=== PATIENT | male | born 1955 | race Caucasian/White ===

== ENCOUNTER 2017-11-24 15:45 | Inpatient (IN) ==
[2017-11-24] MEDS ORDERED: Sodium Chloride 0.9% 1,000 ML PRIMARY IV ONE ×2 (16:21→16:58)
[2017-11-24] MEDS ORDERED: ONDANSETRON 4 MG/2 ML VIAL IVP ONE (16:21)
[2017-11-24] MEDS ORDERED: KETOROLAC 15 MG/1 ML VIAL IVP ONE (16:21)
[2017-11-24 16:28] LABS: VENOUS PH 7.4 (7.32-7.42)
[2017-11-24 16:29] LABS: Hematocrit [HCT] 47.9 % (42.0-52.0); Hemoglobin [HGB] 15.6 g/dL (14.0-18.0); MEAN CORPUSCULAR HEMOGLOBIN 29.2 PG (27-31); MEAN CORPUSCULAR HGB CONC 32.6 g/dL (33-37); MEAN CORPUSCULAR VOLUME 89.7 FL (80-90); MEAN PLATELET VOLUME 13.1 FL (7.4-12.2); RED BLOOD COUNT 5.34 10^6/uL (4.70-6.10)
--- NOTE | 2017-11-24 16:32 | PDOC ---
Abdomen/Flank HPI - General Chief Complaint: Abdomen Pain Stated Complaint: nausea, vomiting, abd pain Date Seen by Provider: 11/24/17 Time Seen by Provider: 16:20 Source: POSITIVE: Patient, Spouse Exam Limitations: POSITIVE: No limitations Nurse's Notes Reviewed & Considered: Yes - History of Present Illness Initial Comments: This is a well-developed, well-nourished, 62-year-old male complaining of constipation and vomiting. Patient comes in today with a history of not feeling well for the last 3 days. 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 He states his colostomy bag filled up rapidly about 3 days ago and since he's had very minimal output. He states in the past when this is happened it was because of dehydration. Patient denies any headache or sore throat, no chest pain or shortness of breath, no cough. He does have nausea vomiting and constipation. He denies any hematuria or dysuria, no myalgias or arthralgias. Patient has a history of colon cancer with APR and colostomy, prostate cancer with seed radiation treatment, and recent diagnosis of leukemia. He is uncertain of the type. Body Location Affected: REPORTS: Abdomen Timing: REPORTS: Abrupt Duration: <1 week Severity: Moderate Quality: REPORTS: "Pain" Abdominal Pain Onset Location: REPORTS: Generalized abdomen Abdominal Pain Radiation: REPORTS: No radiation Context: REPORTS: Activity Modifying Factors: improves with: Nothing Associated Symptoms: REPORTS: Nausea, Vomiting, Constipation Similar Symptoms Previously: Yes Recent Care Received: REPORTS: Denies Any Prior Injuries Related to Current Complaint?: No - Patient Home Medications Home Medications: Home Medications Adhesive Remover [Uni-Solve Adhes Remover Wipes] 1 ea TOPICAL 3XW #1 box Ostomy Supply [Coloplast Skin Barrier] 1 ea MC 3XW #1 box 12/30/11 Ostomy Supply [Ostomy Paste] 57 gm MC PRN #1 tube 12/30/11 Ostomy Supply [Stomahesive Sterile Wafer] 1 ea TOPICAL 3XW #15 wafer 12/30/11 Ostomy Supply [Stomahesive] 1 ea MC 3XW #30 ea 12/30/11 atorvastatin 20 mg tablet 20 mg PO QDAY #90 tab 10/27/17 lisinopril 10 mg tablet 10 mg PO QDAY #90 tab 10/27/17 metformin 1,000 mg tablet 1,000 mg PO BID #90 tab 10/27/17 tamsulosin 0.4 mg capsule 0.4 mg PO BID #180 cap 11/03/17 - Patient Allergies Allergies/Adverse Reactions: Allergies 3 Allergy/AdvReac Type Severity Reaction Status Date / Time promethazine HCl AdvReac Intermediate nausea, Verified 11/24/17 15:55 [From Phenergan] vomiting, MUSCLE SPASMS DIFF BREATHING Past Medical History - heen HEENT History: Denies History Cardiovascular History: Hypertension Respiratory History: Denies History Gastrointestinal History: Colostomy Genitourinary History: Denies History Endocrine History: Denies History Musculoskeletal History: Back Pain, Back Injury Neurological History: Denies History Blood Disorders: Denies History Psychiatric History: Denies History History of Sexually Transmitted Diseases: No Cancer History: Colon, Other (please comment) History of MDRO: No History of Other Communicable Diseases: No Alcohol Use: Occasionally In the Past 12 Months, Have Used or Abuse Any Substance: None Previous Surgical History: Yes Anesthesia Reactions: No Malignant Hyperthermia: No ROS - Limitations ROS Limitations: No Limitations Constitution: REPORTS: Denies Symptoms Cardiovascular: REPORTS: Denies Cardiac Symptoms Respiratory: REPORTS: Denies Resp Symptoms Neurological: REPORTS: Denies Neuro Symptoms Gastrointestinal: REPORTS: Abdominal Pain, Nausea, Vomitting, Constipation Endocrine: REPORTS: Denies Symptoms Musculoskeletal: REPORTS: Denies MS Symptoms Genitourinary: REPORTS: Denies Symptoms Eyes: REPORTS: Denies Symptoms ENT: REPORTS: Denies Symptoms Skin: REPORTS: Denies Skin Symptoms Lympathic: REPORTS: Denies Lympathic Symptoms Immunologic: POSITIVE: Denies Symptoms Psychiatric: POSITIVE: Denies Psych Symptoms Abdominal/Flank Pain PE - General Appearance General Appearance: POSITIVE: Alert, Cooperative, No Acute Distress, No Evidence of Trauma - HEENT HEENT: POSITIVE: Head Inspection Nml, Eyes Inspection Nml, Ears Inspection Nml, Nose Inspection Nml, Oral/Dental Inspect. Nml, Pharynx Inspect. Nml, PERRL, EOMI - Neck Neck: POSITIVE: Normal Inspection, No Apparent Injury - Respiratory Respiratory: POSITIVE: No Respiratory Distress, Breath Sounds Normal, Chest Non- Tender - Cardiovascular Cardiovascular: POSITIVE: Regular Rate and Rhythm, Heart Sounds Normal, Strong Pulses Peripheral Pulses: Radial (L): 4+ - Chest Chest: POSITIVE: Non Tender - Abdomen Abdomen: Soft: (All Quadrants), Normal Bowel Sounds: (All Quadrants), Denies Tenderness: (All Quadrants), No Splenomegaly: (All Quadrants), No Hepatomegaly: (All Quadrants), No Guarding: (All Quadrants), No Rebound: (All Quadrants), No Palpable Pulse: (All Quadrants), No Palpabale Mass: (All Quadrants), No Distention: (All Quadrants), No Rigidity: (All Quadrants) Additional Abdominal Details: Colostomy in the left lower quadrant present. 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 Findings: CBC shows white count of 26.29. Hemoglobin and hematocrit and platelets are normal. INR is 1.17 and PTT is elevated at 12.1. CMP shows a sodium of 146, glucose of 129, total bilirubin of 2.8. Lipase is normal at 138. Urinalysis is positive for bacteria. CT of his abdomen reveals a small bowel obstruction. Ultrasound of his abdomen shows no acute findings. Assessment: #1 leukemia. #2 small bowel obstruction. #3 urinary tract infection. Plan: Patient receives Invanz IV, a nasogastric tube is placed, and patient is being admitted by the hospitalist Dr. Jules Neumanns. Dr. Grant, the on- call surgeon, has come to the emergency room and evaluated the patient. - Consult Consult (If Yes, Name of Consulting MD & Time Called): Yes (Dr Artis, Dr. Grant) Consulting MD will see pt:: POSITIVE: [facility] Admit Counseled: POSITIVE: Patient, Family, RE: Lab Results, RE: Radiology Results, RE : DX Patient Care Time - Estimated PCT Patient Care Time (In Minutes): 45 Vital Signs - VS Reviewed Vital Signs Reviewed: Yes Discharge Clinical Impression: Abdominal pain, Small bowel obstruction, UTI (urinary tract infection) Discharge Disposition: Admit to Inpatient Condition: Stable Date Decision to Admit to Inpatient: 11/24/17 Time Decision to Admit to Inpatient: 20:03
[2017-11-24 16:39] LABS: BLOOD UREA NITROGEN 17 mg/dL (7-22); BUN/CREATININE RATIO 15.45 (6-20); SERUM ALBUMIN 4.7 g/dL (3.5-4.8)
[2017-11-24 17:00] LABS: PLATELET MORPHOLOGY COMMENT NORMAL MORPHOLOGY (NORM); RBC MORPHOLOGY COMMENT NORMAL MORPHOLOGY (NORM); WBC MORPHOLOGY COMMENT NORMAL MORPHOLOGY (NORM)
[2017-11-24 17:01] LABS: BAND NEUTROPHILS % 2 % (0-10); BASOPHILS % (MANUAL) 0 % (0-1); EOSINOPHILS % (MANUAL) 0 % (0-8); METAMYELOCYTES % 0 %; MONOCYTES % (MANUAL) 4 % (0-12); MYELOCYTES % 0 %; NEUTROPHILS % (MANUAL) 45 % (50-80); PROMYELOCYTES % 0 %
[2017-11-24 17:03] LABS: BILIRUBIN,URINE NEGATIVE (NEG); CLARITY,URINE CLEAR (CLEAR); COLOR,URINE YELLOW (Y); GLUCOSE, URINE (UA) NEGATIVE (NEG); OCCULT BLOOD,URINE Trace-intact (NEG); PH,URINE 5.5 (5.0-8.5); PROTEIN,URINE >300 mg/dl (NEG); UROBILINOGEN,URINE 0.2 EU/dL (0.2)
[2017-11-24 17:13] LABS: BACTERIA,URINE MODERATE; SQUAMOUS EPITHELIAL CELL,UR RARE; URINE SAMPLE TYPE CLEAN CATCH URINE; URINE SPECIFIC GRAVITY - MAN 1.027
--- NOTE | 2017-11-24 19:11 | DI ---
EXAM: US Abdomen Limited, Right Upper Quadrant CLINICAL HISTORY: Elevated bilirubin, nausea vomiting TECHNIQUE: Real-time ultrasound of the right upper quadrant with image documentation. COMPARISON: No relevant prior studies available. FINDINGS: Liver: Liver is upper limits of normal in size. Smooth hepatic contour. Diffusely increased hepatic echogenicity is suggestive of diffuse hepatic steatosis. The portal vein is patent with normal direction of flow. Gallbladder: Gallbladder is absent. Common bile duct: Unremarkable as visualized. No stones. No dilation. Pancreas: Unremarkable as visualized. Right kidney: Unremarkable. No stones. No solid mass. No hydronephrosis. IMPRESSION: No acute findings. Probable diffuse hepatic steatosis.
--- NOTE | 2017-11-24 19:29 | DI ---
EXAM: CT Abdomen and Pelvis With Intravenous Contrast CLINICAL HISTORY: Abdominal pain TECHNIQUE: Axial computed tomography images of the abdomen and pelvis with intravenous contrast. COMPARISON: 06/01/2007 FINDINGS: Lung bases: Unremarkable. No mass. No consolidation. Mediastinum: Small hiatal hernia. ABDOMEN: Liver: Unremarkable. Gallbladder and bile ducts: Gallbladder is absent. Pancreas: Unremarkable. Spleen: Unremarkable. Adrenals: Unremarkable. Kidneys and ureters: Moderate left hydroureteronephrosis. Narrowing of the distal left ureter. Subcentimeter foci of hypoattenuation in the left kidney are too small to characterize. Subcentimeter bilateral nephrolithiasis. No calcified ureteral calculi. Stomach and bowel: Dilated fluid-filled loops of small bowel in the lower abdomen are suggestive of a small bowel obstruction. Presacral transition point were several small bowel loops appear tethered. Partial colectomy and left lower quadrant colostomy. PELVIS: Appendix: See above. Bladder: Mild thickening of the underdistended urinary bladder. Reproductive: Brachial therapy seeds are present in the prostate gland. ABDOMEN and PELVIS: Intraperitoneal space: Unremarkable. No free air. Bones/joints: No acute osseous abnormality. Soft tissues: Peristomal hernia containing fat. Multiple small ventral abdominal wall hernias containing fat. Vasculature: Atherosclerosis of the abdominal aorta. No abdominal aortic aneurysm. Lymph nodes: Unremarkable. IMPRESSION: Small bowel obstruction. Presacral transition point. Moderate left hydroureteronephrosis without a calcified ureteral calculus may be related to stricture of the distal ureter. Mass is not excluded.
--- NOTE | 2017-11-24 19:56 | PDOC ---
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 Dale discussed the case with Dr. manuela Hampton general surgery which she had the hospital admit the patient. Past Medical History Medical History: Hypertension, hyperlipidemia, diabetes Surgical History: Colon cancer, prostate cancer, now new diagnosis of leukemia unknown type Tobacco Use: Former Smoker In the Past 12 Months, Have Used or Abuse Any of the Following Substance: None Alcohol Use: None Medication / Allergies Home Medications: Home Medications 3 Medication Instructions Recorded Confirmed Type Adhesive Remover [Uni-Solve Adhes 1 ea TOPICAL 3XW #1 box 12/30/11 11/24/17 History Remover Wipes] Ostomy Supply [Coloplast Skin 1 ea MC 3XW #1 box 12/30/11 11/24/17 History Barrier] Ostomy Supply [Ostomy Paste] 57 gm MC PRN #1 tube 12/30/11 11/24/17 History Ostomy Supply [Stomahesive Sterile 1 ea TOPICAL 3XW #15 wafer 12/30/11 11/24/17 History Wafer] Ostomy Supply [Stomahesive] 1 ea MC 3XW #30 ea 12/30/11 11/24/17 History atorvastatin 20 mg tablet 20 mg PO QDAY #90 tab 10/27/17 11/24/17 Rx lisinopril 10 mg tablet 10 mg PO QDAY #90 tab 10/27/17 11/24/17 Rx metformin 1,000 mg tablet 1,000 mg PO BID #90 tab 10/27/17 11/24/17 Rx tamsulosin 0.4 mg capsule 0.4 mg PO BID #180 cap 11/03/17 11/24/17 Rx Allergies/Adverse Reactions: Allergies 3 Allergy/AdvReac Type Severity Reaction Status Date / Time promethazine HCl AdvReac Intermediate nausea, Verified 11/24/17 15:55 [From Phenergan] vomiting, MUSCLE SPASMS DIFF BREATHING Review of Systems - Review of Systems All Systems: Reviewed & No Additional Complaints Except as Stated - Respiratory Respiratory: DENIES: Negative System Review, Cough, Sputum, Dyspnea At Rest, Dyspnea with Exertion, Pleuritic Pain, Hemoptysis, Wheezing, Other, See HPI - Cardiovascular Cardiovascular: DENIES: Negative System Review, Chest Pain, Edema, Syncope, Palpitations, Orthopnea, Paroxysmal Nocturnal Dyspnea, Other, See HPI - Gastrointestinal Gastrointestinal / Abdominal: REPORTS: Nausea, Vomiting Exam - Vitals Vital Signs: Vital Signs Temperature 96.9 F Temperature Source Temporal Artery Scan Pulse Rate [Pulse Oximeter] 96 Respiratory Rate 22 Blood Pressure [Left Arm] 172/108 Pulse Ox 96 Oxygen Delivery Method Room Air Height 5 ft 5 in Weight 200 lb - General General Appearance: No Acute Distress, Cooperative - ENT ENT Exam: POSITIVE: Normal Exam, Normal External Ear Exam, Normal Oropharynx, TM 's Normal Bilaterally, Mucous Membranes Moist - Neck Neck Exam: Normal Inspection, Full ROM, No Tenderness, No Lymphadenopathy, No Thyromegaly, JVP is not Raised - Respiratory Respiratory Exam: POSITIVE: Clear to Auscultation - Bilaterally, Breathing Non Labored, Normal To Percussion, Normal to Percussion and Palpation - Cardiovascular Cardiovascular Exam: POSITIVE: RRR, No Murmur, No Clicks, No Gallops, No Rubs, PMI Non-Displaced - GI/Abdominal GI/Abdominal Exam: POSITIVE: Non Tender, Non Distended - Extremities Extremities Exam: POSITIVE: No Clubbing Present, No Edema Present, No Cyanosis Present Results - Labs CBC and BMP: 11/24/17 16:05 11/24/17 16:05 Assessment and Plan - Patient Problems (1) Small bowel obstruction Current Visit: Yes Status: Acute Comment: Dr. manuela Hampton consulted most likely will require NG tube will admit patient start IV fluids lactated Ringer's at 125 further recommendations as per general surgery will hold metformin Code(s): K56.609 - Unspecified intestinal obstruction, unspecified as to partial versus complete obstruction (2) HTN (hypertension) Current Visit: No Status: Acute Onset Date: 03/14/12 Comment: Continue RUMA inhibitor Code(s): I10 - Essential (primary) hypertension Qualifiers: (3) History of colostomy Current Visit: No Status: Acute Onset Date: 03/14/12 Comment: Continue colostomy care Code(s): Z98.890 - Other specified postprocedural states (4) Obesity with body mass index 30 or greater Current Visit: No Status: Acute Onset Date: 06/19/12 Code(s): E66.9 - Obesity, unspecified
[2017-11-24] MEDS ORDERED: Ertapenem Inj 1 GM in Sodium Chloride 0.9% 100 ML IV ONE (20:04)
--- NOTE | 2017-11-24 20:28 | CONSULT ---
Consult Note - Consult Consult Date: 11/24/17 Reason for Consult: PreOp Consulation : General Surgery Requesting Physician: Dr. Dale and Dr. Walker Primary Care Provider: Farzad Tena MD - History of Present Illness History of Present Illness: This 62-year-old gentleman who is status post an APR for colon cancer. He's also had prostate cancer. He had radiation therapy for both prostate cancer and his colon cancer. He states he's had 3 prior small bowel obstructions and this is his fourth. He states he currently is feeling better than he did when he first came to the emergency department. His story is a couple days he has not been feeling well he had a large liquid stool in his colostomy and hasn't had anything since that time. Patient has recently diagnosed with CML and has a 26,000 white count. He also has a UTI. Patient had a CT scan which shows a small bowel obstruction. Patient does days actually beginning to feel better inserted passed little bit gas prior to me seeing him. Review of Systems - Constitutional Constitutional: REPORTS: General Health Good - Integumentary Integumentary: REPORTS: Negative System Review - Eye Exam Eye Exam: REPORTS: Negative System Review - Respiratory Respiratory: REPORTS: Negative System Review - Cardiovascular Cardiovascular: REPORTS: Negative System Review - Gastrointestinal Gastrointestinal / Abdominal: REPORTS: See HPI - Genitourinary Genitourinary: REPORTS: Decreased Stream - Musculoskeletal Musculoskeletal: REPORTS: Back Pain - Neurological Neurologic: REPORTS: Negative System Review - Psychiatric Psychiatric: REPORTS: Negative System Review Past Medical History Medical History: Hypertension, hyperlipidemia, diabetes Surgical History: Colon cancer, prostate cancer, now new diagnosis of leukemia unknown type Tobacco Use: Former Smoker In the Past 12 Months, Have Used or Abuse Any of the Following Substance: None Alcohol Use: None Medication / Allergies Home Medications: Home Medications 3 Medication Instructions Recorded Confirmed Type Adhesive Remover [Uni-Solve Adhes 1 ea TOPICAL 3XW #1 box 12/30/11 11/24/17 History Remover Wipes] Ostomy Supply [Coloplast Skin 1 ea MC 3XW #1 box 12/30/11 11/24/17 History Barrier] Ostomy Supply [Ostomy Paste] 57 gm MC PRN #1 tube 12/30/11 11/24/17 History Ostomy Supply [Stomahesive Sterile 1 ea TOPICAL 3XW #15 wafer 12/30/11 11/24/17 History Wafer] Ostomy Supply [Stomahesive] 1 ea MC 3XW #30 ea 12/30/11 11/24/17 History atorvastatin 20 mg tablet 20 mg PO QDAY #90 tab 10/27/17 11/24/17 Rx lisinopril 10 mg tablet 10 mg PO QDAY #90 tab 10/27/17 11/24/17 Rx metformin 1,000 mg tablet 1,000 mg PO BID #90 tab 10/27/17 11/24/17 Rx tamsulosin 0.4 mg capsule 0.4 mg PO BID #180 cap 11/03/17 11/24/17 Rx Allergies/Adverse Reactions: Allergies 3 Allergy/AdvReac Type Severity Reaction Status Date / Time promethazine HCl AdvReac Intermediate nausea, Verified 11/24/17 15:55 [From Phenergan] vomiting, MUSCLE SPASMS DIFF BREATHING Results - Labs CBC and BMP: 11/24/17 16:05 11/24/17 16:05 Exam - Vitals Vital Signs: Vital Signs Temperature 96.9 F Temperature Source Temporal Artery Scan Pulse Rate [Pulse Oximeter] 96 Respiratory Rate 22 Blood Pressure [Left Arm] 172/108 Pulse Ox 96 Oxygen Delivery Method Room Air Height 5 ft 5 in Weight 200 lb - GI/Abdominal GI/Abdominal Exam: POSITIVE: Non Tender, Non Distended, Soft Assessment and Plan - Patient Problems (1) Small bowel obstruction Current Visit: Yes Status: Acute Code(s): K56.609 - Unspecified intestinal obstruction, unspecified as to partial versus complete obstruction - Assessment / Plan Additional Assessment/Plan Details: I do think the patient has his partial small bowel obstruction based on CT scanning symptoms. Also believe he is beginning to resolve this on his own. Therefore do think hydration as an nothing by mouth is a first visit to reevaluate in the morning. If he does start to throw up have an NG tube placed.
[2017-11-24] MEDS ORDERED: ATORVASTATIN 20 MG TABLET PO SCH (21:44)
[2017-11-24] MEDS ORDERED: ONDANSETRON 4 MG/2 ML VIAL IVP PRN (21:44)
[2017-11-24] MEDS ORDERED: [UNRECOGNIZED DRUG - SUPPLY] MC PRN (21:44)
[2017-11-24] MEDS ORDERED: MORPHINE SULFATE 2 MG/1 ML IVP PRN (21:44)
[2017-11-24] MEDS ORDERED: LIDOCAINE W/ SODIUM BICARB 0.5 ML SYR SUBD PRN (21:44)
[2017-11-24] MEDS: HEPARIN 5000 UNIT/1 ML SUBCUT SCH (22:10)
[2017-11-24] MEDS: Lactated Ringers 1,000 ML PRIMARY IV SCH (22:10)
[2017-11-24] MEDS: PANTOPRAZOLE IV 40 MG VIAL IVP SCH (22:10)
[2017-11-24] MEDS: TAMSULOSIN 0.4 MG CAPSULE PO SCH (22:14)
[2017-11-25 04:57] VITALS: O2SAT 93
[2017-11-25 04:59] LABS: BASOPHILS # (AUTO) 0.02 10*3/UL; BASOPHILS % (AUTO) 0.1 % (0-1); EOSINOPHILS # (AUTO) 0.08 10*3/UL; EOSINOPHILS % (AUTO) 0.5 % (0-8); Hematocrit [HCT] 40.6 % (42.0-52.0); Hemoglobin [HGB] 13.2 g/dL (14.0-18.0); LYMPHOCYTES # (AUTO) 9.61 10*3/uL; MEAN CORPUSCULAR HEMOGLOBIN 29.6 PG (27-31); MEAN CORPUSCULAR HGB CONC 32.5 g/dL (33-37); MEAN PLATELET VOLUME 13.4 FL (7.4-12.2); MONOCYTES # (AUTO) 0.88 10*3/UL (0.3-0.8); NEUTROPHILS # (AUTO) 7.09 10*3/UL; NEUTROPHILS % (AUTO) 39.9 % (50-80); RED BLOOD COUNT 4.46 10^6/uL (4.70-6.10)
[2017-11-25 05:05] LABS: PLATELET MORPHOLOGY COMMENT NORMAL MORPHOLOGY (NORM); RBC MORPHOLOGY COMMENT NORMAL MORPHOLOGY (NORM); WBC MORPHOLOGY COMMENT NORMAL MORPHOLOGY (NORM)
[2017-11-25 05:07] LABS: BLOOD UREA NITROGEN 21 mg/dL (7-22); BUN/CREATININE RATIO 23.33 (6-20); LIPASE 98 IU/L (23-300); SERUM ALBUMIN 3.4 g/dL (3.5-4.8)
[2017-11-25] MEDS: HEPARIN 5000 UNIT/1 ML SUBCUT SCH (05:14)
[2017-11-25] MEDS: Lactated Ringers 1,000 ML PRIMARY IV SCH (05:14)
[2017-11-25 06:54] VITALS: BP 115/68; RESP 18; TEMP 99.3
[2017-11-25] MEDS ORDERED: cefTRIAXone Inj 2 GM in Sodium Chloride 0.9% 100 ML IV SCH (08:30)
--- NOTE | 2017-11-25 08:46 | PDOC(PROG) ---
Date of Service: 11/25/17 Time of Service: 08:45 Interval History: Patient started upon stool on his colostomy. He has no abdominal pain. Objective : Data - Labs CBC and BMP: 11/25/17 04:24 11/25/17 04:24 - Vital Signs Vital Signs and I&O: Vital Signs - Last Taken Temperature 99.3 F 11/25/17 06:47 Pulse Rate 86 11/25/17 06:47 Respiratory Rate 18 11/25/17 06:47 Blood Pressure 115/68 11/25/17 06:47 Pulse Ox 93 11/25/17 06:47 Intake and Output (24hr x 4 totals) 11/23/17 11/24/17 11/25/17 11/26/17 05:59 05:59 05:59 05:59 Intake Total 1998 Output Total 200 / 200 125 / 125 Balance 1799 / 179 -125 / -125 Objective : Exam - GI/Abdominal GI/Abdominal Exam: Non Tender, Non Distended, Soft Assessment and Plan - Patient Problems (1) Small bowel obstruction Current Visit: Yes Status: Acute Code(s): K56.609 - Unspecified intestinal obstruction, unspecified as to partial versus complete obstruction - Assessment / Plan Additional Assessment/Plan Details: Patient is so being fed and tolerates breakfast can be discharged home. Management is UTI by
[2017-11-25] MEDS: TAMSULOSIN 0.4 MG CAPSULE PO SCH (09:01)
[2017-11-25] MEDS: PANTOPRAZOLE IV 40 MG VIAL IVP SCH (09:05)
[2017-11-25] MEDS: LISINOPRIL 10 MG TABLET PO SCH ×2 (09:40→09:41)
--- NOTE | 2017-11-25 10:40 | DCSUMMARY ---
Hospitalization Summary Hospital Course: Final Discharge Diagnosis: Current Visit Problems Problem Status Onset Code Small bowel obstruction Acute K56.609 Abdominal pain Acute R10.9 UTI (urinary tract infection) Acute N39.0 Diagnostic Data, Laboratory Data, and Procedures of Signifigance: Laboratory Results 11/24/17 11/24/17 11/24/17 Range/Units 16:05 16:05 16:05 WBC 26.29 H (4.8-10.8) 10^3/uL RBC 5.34 (4.70-6.10) 10^6/uL Hgb 15.6 (14.0-18.0) g/dL Hct 47.9 (42.0-52.0) % MCV 89.7 (80-90) FL MCH 29.2 (27-31) PG MCHC 32.6 L (33-37) g/dL RDW Std Deviation 47.5 (39-50) fL RDW Coeff of Angelic 14.6 H (11.5-14.5) % Plt Count 146 (140-350) 10*3/uL MPV 13.1 H (7.4-12.2) FL Immature Gran % (Auto) (0-5) % Neut % (Auto) (50-80) % Lymph % (Auto) (10-50) % [place] % (Auto) (5-15) % Eos % (Auto) (0-8) % Baso % (Auto) (0-1) % Immature Gran # (Auto) 10*3/UL Neut # (Auto) 10*3/UL Lymph # (Auto) 10*3/uL [place] # (Auto) (0.3-0.8) 10*3/UL Eos # (Auto) 10*3/UL Baso # (Auto) 10*3/UL Neutrophils % (Manual) 45 L (50-80) % Band Neutrophils % 2 (0-10) % Lymphocytes % (Manual) 49 (10-50) % Monocytes % (Manual) 4 (0-12) % Eosinophils % (Manual) 0 (0-8) % Basophils % (Manual) 0 (0-1) % Metamyelocytes % 0 % Myelocytes % 0 % Promyelocytes % 0 % Blast Cells 0 (0-1) % WBC Morphology Comment Normal morphology (NORM) Plt Morphology Comment Normal morphology (NORM) RBC Morph Comment Normal morphology (NORM) PT 12.1 H (9.7-11.4) secs INR 1.17 (0.00-5.90) N/A VBG pH (7.32-7.42) VBG pCO2 (45-55) mmHg VBG HCO3 (22-26) mmol/L VBG Base Excess (-2-2) MMOL/L Sodium 146 H (135-145) meq/L Potassium 4.1 (3.8-5.2) meq/L Chloride 105 (98-112) meq/L Carbon Dioxide 27 (23-33) meq/L Anion Gap 14 (5-20) BUN 17 (7-22) mg/dL Creatinine 1.1 (0.70-1.50) mg/dL Estimated GFR > 60 (>60 ml/min/1.73m(2)) BUN/Creatinine Ratio 15.45 (6-20) Glucose 129 H (78-110) mg/dL Calculated Osmolality 305.0 H (267-292) mOsm/kg Lactic Acid (0.70-2.10) MMOL/L Calcium 10.3 (8.7-10.7) mg/dL Magnesium 1.8 (1.6-2.4) mg/dL Total Bilirubin 2.8 H (0.3-1.2) mg/dL AST 35 (21-57) IU/L ALT 34 (21-72) IU/L Alkaline Phosphatase 95 (38-126) IU/L C-Reactive Protein 0.5 (0.0-0.9) mg/dL NT-Pro-B Natriuret Pep 42.4 (0-125) PG/ML Total Protein 8.1 H (6.1-8.0) g/dL Albumin 4.7 (3.5-4.8) g/dL Globulin 3.4 (2.50-4.10) g/dL Albumin/Globulin Ratio 1.30 (1.3-2.0) mg/g Amylase (30-110) U/L Lipase (23-300) IU/L Ur Collection Type Urine Color (Y) Urine Clarity (CLEAR) Urine pH (5.0-8.5) Ur Specific [place] (1.005-1.030) U Specif Grav (Refrac) Urine Protein (NEG) mg/dl Urine Glucose (UA) (NEG) mg/dL Urine Ketones (NEG) Urine Occult Blood (NEG) Urine Nitrate (NEG) Urine Bilirubin (NEG) Urine Urobilinogen (0.2) EU/dL Ur Leukocyte Esterase (NEG) Urine RBC (NONE) /hpf Urine WBC (NONE) Ur Squamous Epith Cells (NONE) Ur Renal Epithelial Cell (NONE) Urine Crystals Urine Bacteria (NONE) Urine Casts (NONE) Urine Mucus (NONE) Urine Trichomonas (NONE) Urine Yeast (NONE) Ur Culture Indicated? 11/24/17 11/24/17 11/24/17 Range/Units 16:05 16:05 16:14 WBC (4.8-10.8) 10^3/uL RBC (4.70-6.10) 10^6/uL Hgb (14.0-18.0) g/dL Hct (42.0-52.0) % MCV (80-90) FL MCH (27-31) PG MCHC (33-37) g/dL RDW Std Deviation (39-50) fL RDW Coeff of Angelic (11.5-14.5) % Plt Count (140-350) 10*3/uL MPV (7.4-12.2) FL Immature Gran % (Auto) (0-5) % Neut % (Auto) (50-80) % Lymph % (Auto) (10-50) % [place] % (Auto) (5-15) % Eos % (Auto) (0-8) % Baso % (Auto) (0-1) % Immature Gran # (Auto) 10*3/UL Neut # (Auto) 10*3/UL Lymph # (Auto) 10*3/uL [place] # (Auto) (0.3-0.8) 10*3/UL Eos # (Auto) 10*3/UL Baso # (Auto) 10*3/UL Neutrophils % (Manual) (50-80) % Band Neutrophils % (0-10) % Lymphocytes % (Manual) (10-50) % Monocytes % (Manual) (0-12) % Eosinophils % (Manual) (0-8) % Basophils % (Manual) (0-1) % Metamyelocytes % % Myelocytes % % Promyelocytes % % Blast Cells (0-1) % WBC Morphology Comment (NORM) Plt Morphology Comment (NORM) RBC Morph Comment (NORM) PT (9.7-11.4) secs INR (0.00-5.90) N/A VBG pH 7.40 (7.32-7.42) VBG pCO2 42 L (45-55) mmHg VBG HCO3 26 (22-26) mmol/L VBG Base Excess 1 (-2-2) MMOL/L Sodium (135-145) meq/L Potassium (3.8-5.2) meq/L Chloride (98-112) meq/L Carbon Dioxide (23-33) meq/L Anion Gap (5-20) BUN (7-22) mg/dL Creatinine (0.70-1.50) mg/dL Estimated GFR (>60 ml/min/1.73m(2)) BUN/Creatinine Ratio (6-20) Glucose (78-110) mg/dL Calculated Osmolality (267-292) mOsm/kg Lactic Acid 1.9 (0.70-2.10) MMOL/L Calcium (8.7-10.7) mg/dL Magnesium (1.6-2.4) mg/dL Total Bilirubin (0.3-1.2) mg/dL AST (21-57) IU/L ALT (21-72) IU/L Alkaline Phosphatase (38-126) IU/L C-Reactive Protein (0.0-0.9) mg/dL NT-Pro-B Natriuret Pep (0-125) PG/ML Total Protein (6.1-8.0) g/dL Albumin (3.5-4.8) g/dL Globulin (2.50-4.10) g/dL Albumin/Globulin Ratio (1.3-2.0) mg/g Amylase (30-110) U/L Lipase 138 (23-300) IU/L Ur Collection Type Urine Color (Y) Urine Clarity (CLEAR) Urine pH (5.0-8.5) Ur Specific [place] (1.005-1.030) U Specif Grav (Refrac) Urine Protein (NEG) mg/dl Urine Glucose (UA) (NEG) mg/dL Urine Ketones (NEG) Urine Occult Blood (NEG) Urine Nitrate (NEG) Urine Bilirubin (NEG) Urine Urobilinogen (0.2) EU/dL Ur Leukocyte Esterase (NEG) Urine RBC (NONE) /hpf Urine WBC (NONE) Ur Squamous Epith Cells (NONE) Ur Renal Epithelial Cell (NONE) Urine Crystals Urine Bacteria (NONE) Urine Casts (NONE) Urine Mucus (NONE) Urine Trichomonas (NONE) Urine Yeast (NONE) Ur Culture Indicated? 11/24/17 11/25/17 11/25/17 Range/Units 16:56 04:24 04:24 WBC 17.71 H (4.8-10.8) 10^3/uL RBC 4.46 L (4.70-6.10) 10^6/uL Hgb 13.2 L (14.0-18.0) g/dL Hct 40.6 L (42.0-52.0) % MCV 91.0 H (80-90) FL MCH 29.6 (27-31) PG MCHC 32.5 L (33-37) g/dL RDW Std Deviation 47.2 (39-50) fL RDW Coeff of Angelic 14.5 (11.5-14.5) % Plt Count 116 L (140-350) 10*3/uL MPV 13.4 H (7.4-12.2) FL Immature Gran % (Auto) 0.2 (0-5) % Neut % (Auto) 39.9 L (50-80) % Lymph % (Auto) 54.3 H (10-50) % [place] % (Auto) 5.0 (5-15) % Eos % (Auto) 0.5 (0-8) % Baso % (Auto) 0.1 (0-1) % Immature Gran # (Auto) 0.03 10*3/UL Neut # (Auto) 7.09 10*3/UL Lymph # (Auto) 9.61 10*3/uL [place] # (Auto) 0.88 H (0.3-0.8) 10*3/UL Eos # (Auto) 0.08 10*3/UL Baso # (Auto) 0.02 10*3/UL Neutrophils % (Manual) (50-80) % Band Neutrophils % (0-10) % Lymphocytes % (Manual) (10-50) % Monocytes % (Manual) (0-12) % Eosinophils % (Manual) (0-8) % Basophils % (Manual) (0-1) % Metamyelocytes % % Myelocytes % % Promyelocytes % % Blast Cells (0-1) % WBC Morphology Comment Normal morphology (NORM) Plt Morphology Comment Normal morphology (NORM) RBC Morph Comment Normal morphology (NORM) PT (9.7-11.4) secs INR (0.00-5.90) N/A VBG pH (7.32-7.42) VBG pCO2 (45-55) mmHg VBG HCO3 (22-26) mmol/L VBG Base Excess (-2-2) MMOL/L Sodium 144 (135-145) meq/L Potassium 4.3 (3.8-5.2) meq/L Chloride 112 (98-112) meq/L Carbon Dioxide 24 (23-33) meq/L Anion Gap 8 (5-20) BUN 21 (7-22) mg/dL Creatinine 0.9 (0.70-1.50) mg/dL Estimated GFR > 60 (>60 ml/min/1.73m(2)) BUN/Creatinine Ratio 23.33 H (6-20) Glucose 105 (78-110) mg/dL Calculated Osmolality 300.0 H (267-292) mOsm/kg Lactic Acid (0.70-2.10) MMOL/L Calcium 8.5 L (8.7-10.7) mg/dL Magnesium (1.6-2.4) mg/dL Total Bilirubin 2.6 H (0.3-1.2) mg/dL AST 27 (21-57) IU/L ALT 30 (21-72) IU/L Alkaline Phosphatase 63 (38-126) IU/L C-Reactive Protein (0.0-0.9) mg/dL NT-Pro-B Natriuret Pep (0-125) PG/ML Total Protein 5.8 L (6.1-8.0) g/dL Albumin 3.4 L (3.5-4.8) g/dL Globulin 2.4 L (2.50-4.10) g/dL Albumin/Globulin Ratio 1.40 (1.3-2.0) mg/g Amylase 76 (30-110) U/L Lipase 98 (23-300) IU/L Ur Collection Type Clean catch urine Urine Color Yellow (Y) Urine Clarity Clear (CLEAR) Urine pH 5.5 (5.0-8.5) Ur Specific [place] >=1.030 (1.005-1.030) U Specif Grav (Refrac) 1.027 Urine Protein >300 A (NEG) mg/dl Urine Glucose (UA) Negative (NEG) mg/dL Urine Ketones Negative (NEG) Urine Occult Blood Trace-intact H (NEG) Urine Nitrate Negative (NEG) Urine Bilirubin Negative (NEG) Urine Urobilinogen 0.2 (0.2) EU/dL Ur Leukocyte Esterase Negative (NEG) Urine RBC None (NONE) /hpf Urine WBC 5-8 (NONE) Ur Squamous Epith Cells Rare (NONE) Ur Renal Epithelial Cell None (NONE) Urine Crystals None Urine Bacteria Moderate H (NONE) Urine Casts None (NONE) Urine Mucus Moderate (NONE) Urine Trichomonas None (NONE) Urine Yeast None (NONE) Ur Culture Indicated? Culture set History and Physical pertinent to Admission: Course of Hospitalization: This very nice 62-year-old gentleman who was admitted for small bowel obstruction this is his third episode over the years patient was treated with IV fluids and pain control receive the 1 dose of Invanz as well for his UTI and another dose this morning of Rocephin. He is back to his normal self he has stool in his colostomy bag he was seen by Dr. manuela Hampton this morning of also spoke with the Dr. manuela Hampton and which agreed with the discharging the patient home. He tolerated breakfast he has no nausea no vomiting he is passing a lot of gas as well. No chest pain nausea or vomiting we'll follow up with Dr. manuela Hampton as an outpatient On the date of discharge, the patient was examined: Gen.: No acute distress, alert, nontoxic Heart: Regular rate and rhythm, no murmurs, clicks, gallops, or rubs Lungs: Clear to auscultation bilaterally, breathing is nonlabored Abdomen/GI: Normal tones on auscultation, soft, nontender, nondistended Musculoskeletal/extremities: No clubbing, cyanosis, or edema Vitals reviewed and are listed below Vital Signs (24 hrs) Temp Pulse Resp BP Pulse Ox 11/25/17 06:47 99.3 F 86 18 115/68 93 11/25/17 04:55 97.5 F 79 20 127/69 93 11/25/17 00:46 97 F 72 20 142/85 96 11/24/17 16:09 96.9 F 96 22 172/108 96 Assessment and Plan: 1. As per discharge assessments above 2. Disposition: Home 3. Condition on discharge, stable and improved. 4. Diet: regular diet 5. Activities: resume normal activities 6. Follow-Up: 1. PCP 2. 7. Medications at the Time of Discharge: Home Medications 3 Medication Instructions Recorded Confirmed Type Adhesive Remover [Uni-Solve Adhes 1 ea TOPICAL 3XW #1 box 12/30/11 11/24/17 History Remover Wipes] Ostomy Supply [Coloplast Skin 1 ea MC 3XW #1 box 12/30/11 11/24/17 History Barrier] Ostomy Supply [Ostomy Paste] 57 gm MC PRN #1 tube 12/30/11 11/24/17 History Ostomy Supply [Stomahesive Sterile 1 ea TOPICAL 3XW #15 wafer 12/30/11 11/24/17 History Wafer] Ostomy Supply [Stomahesive] 1 ea MC 3XW #30 ea 12/30/11 11/24/17 History atorvastatin 20 mg tablet 20 mg PO QDAY #90 tab 10/27/17 11/24/17 Rx lisinopril 10 mg tablet 10 mg PO QDAY #90 tab 10/27/17 11/24/17 Rx metformin 1,000 mg tablet 1,000 mg PO BID #90 tab 10/27/17 11/24/17 Rx tamsulosin 0.4 mg capsule 0.4 mg PO BID #180 cap 11/03/17 11/24/17 Rx 8. Time, care, counseling and coordination of care for this discharge is greater than 30 minutes. Exam - Vitals Vital Signs: Vital Signs Temperature 99.3 F Temperature Source Oral Pulse Rate [Pulse Oximeter] 86 Respiratory Rate 18 Blood Pressure [Left Arm] 115/68 Pulse Ox 93 Oxygen Delivery Method Room Air Height 5 ft 5 in Weight 200 lb 11.2 oz Patient Problems - Patient Problem List (1) Small bowel obstruction Current Visit: Yes Status: Acute Code(s): K56.609 - Unspecified intestinal obstruction, unspecified as to partial versus complete obstruction Category: Medical (2) HTN (hypertension) Current Visit: No Status: Acute Onset Date: 03/14/12 Code(s): I10 - Essential (primary) hypertension Qualifiers: Category: Medical (3) History of colostomy Current Visit: No Status: Acute Onset Date: 03/14/12 Code(s): Z98.890 - Other specified postprocedural states Category: Surgical (4) Obesity with body mass index 30 or greater Current Visit: No Status: Acute Onset Date: 06/19/12 Code(s): E66.9 - Obesity, unspecified Category: Medical
== END 2017-11-25 11:16 | disposition home or self-care (01) | DRG 389 ==
LOC: ER 15:45 → MED/SURG 19:48
PROVIDERS: ADMIT Internal Medicine; ATTEND Internal Medicine